=== PATIENT | female | born 1995 | race Asian ===

== ENCOUNTER 2017-11-17 16:34 | Outpatient (CLI) | payer OTHER | END 2017-11-17 23:25 | disposition home or self-care (01) | LOC: OBT 16:34 → L-D 16:35 → OBT 21:47 → L-D 21:47 → OBT 23:25 | DX: O62.9 Abnormality of forces of labor, unspecified (principal); O99.213 Obesity complicating pregnancy, third trimester; O24.419 Gestational diabetes mellitus in pregnancy, unspecified control; Z3A.37 37 weeks gestation of pregnancy | CPT/HCPCS: 76815; 76818; 82962 ==

== ENCOUNTER 2017-11-23 22:04 | Inpatient (IN) | payer OTHER ==
[2017-11-23] MEDS ORDERED: LACTATED RINGER'S 500 ML IV (23:23)
[2017-11-23] MEDS ORDERED: OXYTOCIN 30 UNITS/LR 500 ML IV ×3 (23:30)
[2017-11-23] MEDS ORDERED: CARBOPROST 250 MCG INJ IM (23:30)
[2017-11-23] MEDS ORDERED: BUTORPHANOL 2 MG INJ IV ×2 (23:30)
[2017-11-23] MEDS ORDERED: LIDOCAINE 1% (MPF) 30 ML INJ INJ (23:30)
[2017-11-23] MEDS ORDERED: METHYLERGONOVINE 0.2 MG INJ IM (23:30)
[2017-11-24] MEDS: LACTATED RINGER'S 1,000 ML IV ×4 (00:38→16:11)
[2017-11-24 00:41] LABS: ADD MAN DIFF? NO
[2017-11-24 00:44] LABS: WHITE BLOOD COUNT 11.8 10^3/ul (4.8-10.8)
[2017-11-24 00:45] LABS: BASOPHILS % 0.3 % (0.0-2.0); EOSINOPHILS # 0.1 10^3/ul (0.0-0.5); EOSINOPHILS % 0.8 % (0.0-7.0); HEMATOCRIT 35.8 % (37.0-47.0); HEMOGLOBIN 11.4 g/dl (12.0-16.0); LYMPHOCYTES # 2.1 10^3/ul (0.8-2.9); LYMPHOCYTES % 18.1 % (15.0-51.0); MEAN CORPUSCULAR HEMOGLOBIN 25.7 pg (29.0-33.0); MEAN CORPUSCULAR HGB CONC 31.8 g/dl (32.0-37.0); MEAN CORPUSCULAR VOLUME 80.8 fl (82.0-101.0); MEAN PLATELET VOLUME 9.4 fl (7.4-10.4); MONOCYTE # 0.9 10^3/ul (0.3-0.9); MONOCYTES % 7.5 % (0.0-11.0); NEUTROPHIL # 8.5 10^3/ul (1.6-7.5); NEUTROPHILS % 71.9 % (39.0-77.0); PLATELET COUNT 311 10^3/UL (140-415); RED BLOOD COUNT 4.43 10^6/ul (4.20-5.40); RED CELL DISTRIBUTION WIDTH 13.9 % (11.5-14.5)
[2017-11-24 00:59] LABS: INR 0.93; PROTIME 12.6 Sec (11.9-14.9)
[2017-11-24 01:08] LABS: PARTIAL THROMBOPLASTIN TIME 27.6 Sec (25.0-35.0)
[2017-11-24 01:31] LABS: HEPATITIS B SURFACE ANTIGEN NEGATIVE (NEGATIVE)
[2017-11-24] MEDS ORDERED: FENTAnyl 2MCG/ML-ROPIV 0.2% 100 ML (02:27)
[2017-11-24] MEDS: AMPICILLIN 2 GM/NS (PMX) 100 ML IV (02:46)
[2017-11-24] MEDS ORDERED: ONDANSETRON 4 MG INJ IV (03:00)
[2017-11-24] MEDS ORDERED: DIPHENHYDRAMINE 50 MG INJ IV (03:00)
[2017-11-24] MEDS ORDERED: NALOXONE (0.4 MG/ML) INJ IV (03:00)
[2017-11-24] MEDS: FENTAnyl 2MCG/ML-ROPIV 0.2% 100 ML BAG EPI ×2 (03:02→09:40)
[2017-11-24] MEDS ORDERED: AMPICILLIN 1 GM/NS (PMX) 50 ML IV (03:30)
[2017-11-24 05:15] LABS: GLUCOSE 121 mg/dl (70-220)
[2017-11-24] MEDS: AMPICILLIN 1 GM/NS (PMX) 50 ML IV ×4 (06:06→13:57)
[2017-11-24 06:54] LABS: AMPHETAMINE/METHAMPHETAMINE Negative (NEGATIVE); BARBITURATES Negative (NEGATIVE); BENZODIAZEPINES Negative (NEGATIVE); CANNABINOIDS Negative (NEGATIVE); COCAINE Negative (NEGATIVE); OPIATES Negative (NEGATIVE)
[2017-11-24] MEDS: ACETAMINOPHEN 325 MG TAB PO (08:05)
[2017-11-24] MEDS: OXYTOCIN 30 UNITS/LR 500 ML IV ×3 (10:18→21:45)
[2017-11-24] MEDS: IBUPROFEN 600 MG TAB PO (19:53)
[2017-11-24] MEDS: MISOPROSTOL 200 MCG TAB PR (20:22)
[2017-11-24 21:00] LABS: ADD MAN DIFF? NO
[2017-11-24 21:05] LABS: WHITE BLOOD COUNT 17.1 10^3/ul (4.8-10.8)
[2017-11-24 21:05] LABS: BASOPHILS % 0.2 % (0.0-2.0); EOSINOPHILS # 0.1 10^3/ul (0.0-0.5); EOSINOPHILS % 0.3 % (0.0-7.0); HEMATOCRIT 34.9 % (37.0-47.0); HEMOGLOBIN 11.3 g/dl (12.0-16.0); LYMPHOCYTES # 1.9 10^3/ul (0.8-2.9); LYMPHOCYTES % 11.1 % (15.0-51.0); MEAN CORPUSCULAR HEMOGLOBIN 26.3 pg (29.0-33.0); MEAN CORPUSCULAR HGB CONC 32.4 g/dl (32.0-37.0); MEAN CORPUSCULAR VOLUME 81.4 fl (82.0-101.0); MEAN PLATELET VOLUME 9.4 fl (7.4-10.4); MONOCYTE # 0.9 10^3/ul (0.3-0.9); MONOCYTES % 5.3 % (0.0-11.0); NEUTROPHIL # 14.1 10^3/ul (1.6-7.5); NEUTROPHILS % 82.6 % (39.0-77.0); PLATELET COUNT 301 10^3/UL (140-415); RED BLOOD COUNT 4.29 10^6/ul (4.20-5.40)
[2017-11-24 21:23] LABS: ALANINE AMINOTRANSFERASE 30 IU/L (13-69); ALBUMIN/GLOBULIN RATIO 0.93; ALKALINE PHOSPHATASE 122 IU/L (42-121); ANION GAP 15 (8-16); ASPARTATE AMINO TRANSFERASE 19 IU/L (15-46); BILIRUBIN,INDIRECT 0.3 mg/dl (0-1.1); BILIRUBIN,TOTAL 0.3 mg/dl (0.2-1.3); BLOOD UREA NITROGEN 9 mg/dl (7-20); CALCIUM 9.4 mg/dl (8.4-10.2); CARBON DIOXIDE 23 mmol/L (21-31); CHLORIDE 105 mmol/L (97-110); GLUCOSE 120 mg/dl (70-220); POTASSIUM 3.8 mmol/L (3.5-5.1); SODIUM 139 mmol/L (135-144); TOTAL PROTEIN 6.2 g/dl (6.1-8.1); URIC ACID 6.7 mg/dl (3.1-7.9)
[2017-11-24 21:25] LABS: INR 1.04; PROTIME 13.7 Sec (11.9-14.9); PT RATIO 1.1
[2017-11-24 21:26] LABS: PARTIAL THROMBOPLASTIN TIME 29.2 Sec (25.0-35.0)
[2017-11-24 22:05] LABS: RAPID PLASMA REAGIN NONREACTIVE (NR)
[2017-11-24] MEDS ORDERED: FAMOTIDINE 20 MG INJ (22:59)
[2017-11-25] MEDS ORDERED: CARBOPROST 250 MCG INJ IM
[2017-11-25] MEDS ORDERED: MISOPROSTOL 200 MCG TAB PR
[2017-11-25] MEDS ORDERED: ZOLPIDEM 5 MG TAB PO
[2017-11-25] MEDS ORDERED: OXYCODONE/ASPIRIN (4.88/325) TAB PO
[2017-11-25] MEDS ORDERED: METHYLERGONOVINE 0.2 MG INJ IM
[2017-11-25] MEDS ORDERED: OXYTOCIN 30 UNITS/LR 500 ML IV
[2017-11-25 00:18] LABS: ADD UMIC YES; UR ASCORBIC ACID NEGATIVE (NEGATIVE); UR BACTERIA FEW /HPF (NONE SEEN); UR BILIRUBIN (Dip) NEGATIVE (NEGATIVE); UR BLOOD (Dip) 3+ mg/dL (NEGATIVE); UR CLARITY CLOUDY (CLEAR); UR COLOR RED (YELLOW); UR GLUCOSE (Dip) NEGATIVE (NEGATIVE); UR KETONES (Dip) NEGATIVE (NEGATIVE); UR LEUKOCYTE ESTERASE (Dip) TRACE Leu/ul (NEGATIVE); UR MUCUS FEW /HPF (NONE SEEN); UR NITRITE (Dip) NEGATIVE (NEGATIVE); UR RBC > 182 /HPF (0-5); UR SPECIFIC GRAVITY (Dip) 1.015 (1.003-1.030); UR TOTAL PROTEIN (Dip) 2+ mg/dl (NEGATIVE); UR UROBILINOGEN (Dip) NEGATIVE (NEGATIVE); UR WBC 99 /HPF (0-5)
[2017-11-25] MEDS: HYDROCODONE/APAP (5/325) TAB PO (00:20)
[2017-11-25] MEDS: LANOLIN 7 GM TUBE TOP (01:53)
[2017-11-25] MEDS: BENZOCAINE 20% 56 ML SPRAY TOP (01:53)
[2017-11-25] MEDS: WITCH HAZEL/GLYCERIN PAD PR (01:53)
[2017-11-25] MEDS: IBUPROFEN 600 MG TAB PO ×3 (06:16→17:36)
[2017-11-25 08:46] LABS: ADD MAN DIFF? NO
[2017-11-25 09:03] LABS: BASOPHIL # 0.1 10^3/ul (0.0-0.1); BASOPHILS % 0.3 % (0.0-2.0); EOSINOPHILS # 0.3 10^3/ul (0.0-0.5); EOSINOPHILS % 1.6 % (0.0-7.0); HEMOGLOBIN 10.5 g/dl (12.0-16.0); LYMPHOCYTES # 2.9 10^3/ul (0.8-2.9); MEAN CORPUSCULAR HEMOGLOBIN 26.2 pg (29.0-33.0); MEAN CORPUSCULAR HGB CONC 31.8 g/dl (32.0-37.0); MEAN CORPUSCULAR VOLUME 82.3 fl (82.0-101.0); MEAN PLATELET VOLUME 9.7 fl (7.4-10.4); MONOCYTE # 1.2 10^3/ul (0.3-0.9); MONOCYTES % 7.7 % (0.0-11.0); NEUTROPHIL # 11.3 10^3/ul (1.6-7.5); NEUTROPHILS % 71.5 % (39.0-77.0); PLATELET COUNT 273 10^3/UL (140-415); RED BLOOD COUNT 4.01 10^6/ul (4.20-5.40); RED CELL DISTRIBUTION WIDTH 14.2 % (11.5-14.5)
[2017-11-25 09:03] LABS: WHITE BLOOD COUNT 15.8 10^3/ul (4.8-10.8)
[2017-11-25] MEDS: SENNA/DOCUSATE NA (8.6MG/50MG) TAB PO ×2 (09:50→21:35)
[2017-11-25] MEDS: OXYCODONE/ASPIRIN (4.88/325) TAB PO (16:51)
[2017-11-26] MEDS: IBUPROFEN 600 MG TAB PO ×3 (05:55→12:31)
[2017-11-26] MEDS: DIPHTH/TET/ACEL PERTUSS (ADULT) 0.5 ML VIAL IM* (09:00)
[2017-11-26] MEDS: SENNA/DOCUSATE NA (8.6MG/50MG) TAB PO ×2 (09:44→09:45)
== END 2017-11-26 15:40 | disposition home or self-care (01) | DRG 775 ==
LOC: L-D 11-24 01:28 → PP1 11-25 00:27 → OBT 22:04 → L-D 22:04 → OBT 23:03 → L-D 23:03
PROVIDERS: Obstetrics & Gynecology
PROC: 10E0XZZ Delivery of Products of Conception, External Approach (ICD-10-PCS; principal; 2017-11-24)
PROC: 3E033VJ Introduction of Other Hormone into Peripheral Vein, Percutaneous Approach (ICD-10-PCS; 2017-11-24)
DX: O69.81X0 Labor and delivery complicated by cord around neck, without compression, not applicable or unspecified (principal); Z68.43 Body mass index [BMI] 50.0-59.9, adult; O99.214 Obesity complicating childbirth; E66.01 Morbid (severe) obesity due to excess calories; O24.419 Gestational diabetes mellitus in pregnancy, unspecified control; Z3A.38 38 weeks gestation of pregnancy; Z37.0 Single live birth
CPT/HCPCS: 62319; 76815; 80053; 80307; 81001; 82947; 82962; 84560; 85025; 85384; 85610; 85730; 86592; 86850; 86900; 86901; 87340; 99464

== ENCOUNTER 2019-02-22 10:47 | Emergency (ER) | payer MEDICAID, OTHER ==
[2019-02-22] MEDS: DIPHENHYDRAMINE 25 MG CAP PO (11:20)
[2019-02-22] MEDS: DEXAMETHASONE 10 MG/ML 1 ML INJ IM (11:21)
== END 2019-02-22 12:09 | disposition home or self-care (01) ==
LOC: FTE 10:47
DX: T78.40XA Allergy, unspecified, initial encounter (principal); T49.4X5A Adverse effect of keratolytics, keratoplastics, and other hair treatment drugs and preparations, initial encounter
CPT/HCPCS: 96372; 99284-25; J1100

== ENCOUNTER 2019-03-13 18:12 | Emergency (ER) | payer OTHER | END 2019-03-13 19:48 | disposition home or self-care (01) | LOC: FTE 18:12 | DX: R21 Rash and other nonspecific skin eruption (principal); F17.210 Nicotine dependence, cigarettes, uncomplicated | CPT/HCPCS: 99283; Z7502 ==

== ENCOUNTER 2019-03-17 17:42 | Emergency (ER) | payer OTHER ==
[2019-03-17] MEDS: CEFTRIAXONE 2 GM INJ IM (19:46)
[2019-03-17] MEDS: LIDOCAINE 1% (MPF) 5 ML VIAL INJ (19:46)
== END 2019-03-17 20:23 | disposition home or self-care (01) ==
LOC: FTE 17:42
DX: L08.89 Other specified local infections of the skin and subcutaneous tissue (principal); F17.210 Nicotine dependence, cigarettes, uncomplicated
CPT/HCPCS: 81025; 96372; 99284-25